=== PATIENT | male | born 1995 | race Hispanic/Latino ===

== ENCOUNTER → 2018-06-15 | Outpatient (CLI) | payer BC ==
--- NOTE | 2018-06-19 09:40 | Diagnostic Imaging Report ---
Exam: Right footCT without contrast. History: Displaced fracture. Trauma. Scaphoid bone fracture. Comparison:None Technique: Utilizing a 64-slice multidetector CT, axial imaging was performed through the right foot without IV contrast. Multiplanar reformation was performed. All CT scans are performed using radiation dose reduction techniques. Technical factors are evaluated and adjusted to ensure appropriate moderation of exposure. Automated dose management technology is applied to adjust the radiation dose to minimize exposure while achieving a diagnostic-quality image. Findings: The overlying cast is seen. There is a severely comminuted displaced intra-articular fracture involving the navicular bone. The largest bone fragments are displaced in a medial direction. Several adjacent small bone fragments are seen. There is a comminuted displaced predominantly obliquely oriented fracture involving the distal portion of the lateral cuneiform bone. There is a nondisplaced obliquely oriented fracture involving the distal aspect of the intermediate cuneiform bone. There is a comminuted displaced intra-articular fracture involving the distal aspect of the cuboid bone. There is an obliquely oriented intra-articular fracture involving the proximal fourth metatarsal. The remainder of the metatarsals appear to be intact. The talus and calcaneus appear to be intact. The visualized distal tibia and fibula appear to be intact. The Lisfranc joint appears to be intact. There is diffuse soft tissue swelling. Impression: Comminuted intra-articular fractures as described above. Signed by: Dr. Jonn Garrett M.D. on 06/19/2018 9:36 AM
== END ==
LOC: CT 17:25
PROVIDERS: ATTEND Specialist
DX: S92.251A Displaced fracture of navicular [scaphoid] of right foot, initial encounter for closed fracture (principal)